=== PATIENT | male | born 1985 | race African-American/Black ===

== ENCOUNTER 2016-08-02 17:48 | Emergency (ER) | payer SELFPAY ==
[~2016-08-02] VITALS: Ht 182.9 cm; Wt 70.7 kg
[~2016-08-02 17:48] MED LIST: TRVHP PO
[2016-08-02 17:49] VITALS: Ht 182.9 cm; Wt 70.7 kg
[2016-08-02] MEDS ORDERED: ONDANSETRON INJ 2 MG/ML 2 ML VIAL IV STA (17:58)
[2016-08-02] MEDS ORDERED: SODIUM CHLORIDE 0.9% 1000ML 1,000 ML IV STA (17:58)
[2016-08-02] MEDS ORDERED: PANTOprazole INJ 40 MG in SYRINGE 0 ML IV ONE (18:00)
--- NOTE | 2016-08-02 18:07 | EMERGENCY ROOM VISIT NOTE ---
History Report prepared by Michelle: Paulina Saleh Under the Supervision of: Dr. Uziel Lauren D.O. First contact with patient: 17:52 Chief Complaint: NAUSEA Stated Complaint: NAUSEA MUSCLE PAIN WEAKNESS History of Present Illness The patient is a 31 year old male who presents to the Emergency Room with complaints of persistent nausea starting 1 week ago. He thought the symptoms might pass, but they have persisted. The nausea does not worsen with eating. It is constant throughout the day. He reports body aches, fatigue, and intermittent sharp abdominal pain in the RUQ. He feels lightheaded when standing up. He denies any double vision, trouble walking, chest pain, SOB, back pain, leg pain, dizziness, or headache. He denies any medical problems. He had an appendectomy 3 years ago. He admits to alcohol use. He denies any recent travel. Source of History: patient Onset: 1 week ago Position: other (global) Quality: other (nausea) Timing: other (persistent) Associated Symptoms: + abdominal pain, + fatigue, No SOB, No back pain, No chest pain, No headache Note: Pt reports body aches, lightheaded. Pt denies double vision, trouble walking, leg pain, dizziness. Review of Systems See HPI for pertinent positives & negatives. A total of 10 systems reviewed and were otherwise negative. Past Medical & Surgical Surgical Problems: (1) S/P appendectomy Family History No pertinent family history stated. Social History Smoking Status: Current Every Day Smoker Marital Status: single Occupation Status: [employer] student Current/Historical Medications Scheduled Ondasetron Odt (Zofran Odt), 4 MG SL Q6H Pantoprazole (Protonix), 40 MG PO DAILY Allergies Coded Allergies: No Known Allergies (Unverified , 08/02/16) Physical Exam Vital Signs Date Time Temp Pulse Resp B/P Pulse Ox O2 Delivery O2 Flow Rate FiO2 08/02/16 20:12 36.5 76 18 141/89 100 08/02/16 19:24 64 16 136/96 100 Room Air 08/02/16 19:24 68 08/02/16 17:49 36.5 80 20 145/87 99 Room Air Physical Exam GENERAL: Patient is awake, alert, and in no acute distress. Patient is resting comfortably and showing no signs of anxiety EYES: The conjunctivae are clear. The pupils are round and reactive. EARS, NOSE, MOUTH AND THROAT: The nose is without any evidence of any deformity. Mucous membranes are moist tongue is midline NECK: The neck is nontender and supple. RESPIRATORY: Normal respiratory effort is noted there is no evidence of wheezing rhonchi or rales CARDIOVASCULAR: Regular rate and rhythm noted there no murmurs rubs or gallops normal S1 normal S2 GASTROINTESTINAL: The abdomen is soft with RUQ and epigastric tenderness to palpation, no guarding or rigidity. MUSCULOSKELETAL/EXTREMITIES: There is no evidence of gross deformity full range of motion is noted in the hips and shoulders SKIN: There is no obvious evidence of any rash. There are no petechiae, pallor or cyanosis noted. NEUROLOGIC: Patient is awake alert and oriented x3 strength is symmetric patellar reflexes are 2+ bilaterally Medical Decision & Procedures ER Provider Diagnostic Interpretation: X-ray results as stated below per interpretation by me and the radiologist. Radiology results as stated below per my review and radiologist interpretation: PA CHEST RADIOGRAPH AND UPRIGHT AND SUPINE AP RADIOGRAPHS OF THE ABDOMEN CLINICAL HISTORY: Abdominal pain. COMPARISON STUDY: No previous studies for comparison. FINDINGS: Lung volumes are normal. There is no consolidation. Pulmonary vascularity is normal. No pneumothorax or pleural effusion is present. Cardiac size is normal. Mediastinal contours are normal. There is no free air. The bowel gas pattern is normal. A surgical staple line within the right lower quadrant is noted. No urinary calculi are identified. IMPRESSION: 1. No free air or evidence of bowel obstruction. 2. No acute cardiopulmonary findings. Electronically signed by: Oh Barros M.D. 08/02/2016 7:20 PM Dictated Date/Time: 08/02/2016 7:19 PM ABDOMINAL ULTRASOUND, RIGHT UPPER QUADRANT HISTORY: Abdominal pain. COMPARISON: None. FINDINGS: The liver is sonographically normal. There is no biliary ductal dilatation. No gallstones are identified. There is no gallbladder wall thickening. Pancreatic body is normal. The head and tail are partially. There is no right hydronephrosis. The right kidney appears slightly echogenic. IMPRESSION: 1. No gallstones or biliary ductal dilatation. 2. Apparent increased echogenicity of the right kidney. This is probably technical although medical renal disease could appear similar. Electronically signed by: Oh Barros M.D. 08/02/2016 7:07 PM Dictated Date/Time: 08/02/2016 7:05 PM Laboratory Results 08/02/16 18:20 Red Blood Count 5.08, Mean Corpuscular Volume 87.2, Mean Corpuscular Hemoglobin 30.9, Mean Corpuscular Hemoglobin Concent 35.4, Mean Platelet Volume 10.4, Neutrophils (%) (Auto) 36.1, Lymphocytes (%) (Auto) 49.3, Monocytes (%) (Auto) 10.5, Eosinophils (%) (Auto) 2.9, Basophils (%) (Auto) 1.0, Neutrophils # (Auto ) 1.51, Lymphocytes # (Auto) 2.06, Monocytes # (Auto) 0.44, Eosinophils # (Auto ) 0.12, Basophils # (Auto) 0.04 08/02/16 18:20 Test 08/02/16 18:20 08/02/16 19:20 White Blood Count 4.18 K/uL (4.8-10.8) Red Blood Count 5.08 M/uL (4.7-6.1) Hemoglobin 15.7 g/dL (14.0-18.0) Hematocrit 44.3 % (42-52) Mean Corpuscular Volume 87.2 fL (80-100) Mean Corpuscular Hemoglobin 30.9 pg (25-34) Mean Corpuscular Hemoglobin Concent 35.4 g/dl (32-36) Platelet Count 278 K/uL (130-400) Mean Platelet Volume 10.4 fL (7.4-10.4) Neutrophils (%) (Auto) 36.1 % Lymphocytes (%) (Auto) 49.3 % Monocytes (%) (Auto) 10.5 % Eosinophils (%) (Auto) 2.9 % Basophils (%) (Auto) 1.0 % Neutrophils # (Auto) 1.51 K/uL (1.4-6.5) Lymphocytes # (Auto) 2.06 K/uL (1.2-3.4) Monocytes # (Auto) 0.44 K/uL (0.11-0.59) Eosinophils # (Auto) 0.12 K/uL (0-0.5) Basophils # (Auto) 0.04 K/uL (0-0.2) RDW Standard Deviation 36.9 fL (36.4-46.3) RDW Coefficient of Variation 11.7 % (11.5-14.5) Immature Granulocyte % (Auto) 0.2 % Immature Granulocyte # (Auto) 0.01 K/uL (0.00-0.02) Anion Gap 7.0 mmol/L (3-11) Est Creatinine Clear Calc Drug Dose 99.1 ml/min Estimated GFR () 104.6 Estimated GFR (Non- 90.2 BUN/Creatinine Ratio 11.5 (10-20) Calcium Level 9.0 mg/dl (8.5-10.1) Total Bilirubin 0.6 mg/dl (0.2-1) Direct Bilirubin 0.2 mg/dl (0-0.2) Aspartate Amino Transf (AST/SGOT) 18 U/L (15-37) Alanine Aminotransferase (ALT/SGPT) 22 U/L (12-78) Alkaline Phosphatase 59 U/L (45-117) Troponin I < 0.015 ng/ml (0-0.045) Total Protein 7.6 gm/dl (6.4-8.2) Albumin 4.3 gm/dl (3.4-5.0) Lipase 96 U/L (73-393) Urine Color YEL Urine Appearance CLEAR (CLEAR) Urine pH 6.5 (4.5-7.5) Urine Specific [place] 1.010 (1.000-1.030) Urine Protein NEG (NEG) Urine Glucose (UA) NEG (NEG) Urine Ketones NEG (NEG) Urine Occult Blood NEG (NEG) Urine Nitrite NEG (NEG) Urine Bilirubin NEG (NEG) Urine Urobilinogen NEG (NEG) Urine Leukocyte Esterase NEG (NEG) Laboratory results per my review. Medications Administered Medications (Trade) Dose Ordered Sig/[place] Route Start Time Stop Time Status Last Admin Dose Admin Sodium Chloride (Nss 1000ml) 1,000 ml @ 999 mls/hr Q1H1M STAT IV 08/02/16 17:58 08/02/16 18:58 DC 08/02/16 17:58 999 MLS/HR Ondansetron HCl 4 mg 4 mg NOW STAT IV 08/02/16 17:58 08/02/16 17:59 DC 08/02/16 18:28 4 MG Pantoprazole Sodium/Syringe (Protonix Inj/ Syringe) 10 ml @ 5 mls/min NOW ONCE IV 08/02/16 18:00 08/02/16 18:04 DC 08/02/16 18:28 5 MLS/MIN ECG Indication: nausea Rate (beats per minute): 67 Rhythm: normal sinus Findings: no ectopy, other (no acute ST segment abnormality) Comparison ECG Date: no prior available ED Course 1754: The patient was evaluated in room B8. A complete history and physical examination were performed. 1757: Zofran Inj 4 mg IV, NSS 1000 ml @ 999 mls/hr IV. 1799: Pantoprazole Sodium 40 mg/Syringe 10 ml @ 5 mls/min IV. 1954: Upon reevaluation, the patient is resting comfortably. I discussed the results and treatment plan with him. He verbalized agreement of the treatment plan. He was discharged home. Medical Decision Prior records/ancillary studies reviewed. Triage Nursing notes reviewed. The patient's history was concerning for nausea and abdominal pain. Differential diagnosis: Etiologies such as gastroenteritis, food borne illness, infections, appendicitis , diverticulitis, inflammatory bowel disease, obstruction, GI bleed, biliary pathology, as well as others were entertained. The patient is a 31-year-old male who presented to the emergency department for an evaluation of nausea. The patient appeared to have upper abdominal tenderness on physical exam. He did not have a surgical abdomen on physical exam. The patient did not have any focal neurologic deficits or headache. I discussed the patient's laboratory and radiographic studies with him. He was treated with IV fluids IV antiemetics and IV proton pump inhibitors. On subsequent reevaluation he was feeling much better. I discussed the patient's laboratory and radiographic studies with him including the findings on his kidney on ultrasound. I recommended that he follow-up with his primary care physician for reevaluation and for possible referral to a solar photovoltaic installer. He was also encouraged to have repeat imaging of his kidneys when he was feeling better. He was also encouraged to return to emergency department immediately if symptoms change worsen or the need arises. Impression Primary Impression: RUQ abdominal pain Additional Impression: Nausea Scribe Attestation The scribe's documentation has been prepared under my direction and personally reviewed by me in its entirety. I confirm that the note above accurately reflects all work, treatment, procedures, and medical decision making performed by me. Departure Information Dispostion Home / Self-Care Prescriptions Pantoprazole (Protonix) 40 Mg Tab 40 MG PO DAILY, #30 TAB Prov: Uziel Lauren, DO 08/02/16 Ondasetron Odt (ZOFRAN ODT) 4 Mg Tab 4 MG SL Q6H for Nausea, #15 TAB Prov: Uziel Lauren, DO 08/02/16 Referrals No Doctor, Assigned [facility] Forms HOME CARE DOCUMENTATION FORM, IMPORTANT VISIT INFORMATION, School Instructions, Work Instructions Patient Instructions Abdominal Pain, [facility] Additional Instructions Drink plenty clear liquids. Avoid any fatty spicy or fried foods. Continue all medications as prescribed. Follow-up with your family this week for reevaluation but return to the emergency department immediately if symptoms change worsen or the need arises. I would also recommend a repeat ultrasound of her kidneys when symptoms improve. There was a slight echogenicity of your right kidney which is likely not related to today's symptoms. Problem Qualifiers
[2016-08-02 18:28] LABS: BASO ABS # 0.04 K/uL (0-0.2); COMPLETE YES; EOS % 2.9 %; HEMATOCRIT 44.3 % (42-52); IG% 0.2 %; LYMPH % 49.3 %; LYMPH ABS # 2.06 K/uL (1.2-3.4); MEAN CELL VOLUME 87.2 fL (80-100); MEAN CORPUSCULAR HEMOGLOBIN 30.9 pg (25-34); MEAN CORPUSCULAR HGB CONC 35.4 g/dl (32-36); MEAN PLATELET VOLUME 10.4 fL (7.4-10.4); MONO % 10.5 %; NEUT % 36.1 %; PLATELET COUNT 278 K/uL (130-400); RED BLOOD COUNT 5.08 M/uL (4.7-6.1); WHITE BLOOD COUNT 4.18 K/uL (4.8-10.8)
[2016-08-02 18:48] LABS: ALT/SGPT 22 U/L (12-78); BLOOD UREA NITROGEN 13 mg/dl (7-18); BUN/CREATININE RATIO 11.5 (10-20); CARBON DIOXIDE 30 mmol/L (21-32); CHLORIDE 102 mmol/L (98-107); GLUCOSE 93 mg/dl (70-99); POTASSIUM 3.7 mmol/L (3.5-5.1); SODIUM 139 mmol/L (136-145)
[2016-08-02 18:53] LABS: ALKALINE PHOSPHATASE 59 U/L (45-117); AST/SGOT 18 U/L (15-37)
--- NOTE | 2016-08-02 19:08 | DIAGNOSTIC IMAGING REPORT ---
ABDOMINAL ULTRASOUND, RIGHT UPPER QUADRANT HISTORY: Abdominal pain. COMPARISON: None. FINDINGS: The liver is sonographically normal. There is no biliary ductal dilatation. No gallstones are identified. There is no gallbladder wall thickening. Pancreatic body is normal. The head and tail are partially. There is no right hydronephrosis. The right kidney appears slightly echogenic. IMPRESSION: 1. No gallstones or biliary ductal dilatation. 2. Apparent increased echogenicity of the right kidney. This is probably technical although medical renal disease could appear similar. Electronically signed by: Oh Barros M.D. 08/02/2016 7:07 PM Dictated Date/Time: 08/02/2016 7:05 PM
--- NOTE | 2016-08-02 19:22 | DIAGNOSTIC IMAGING REPORT ---
PA CHEST RADIOGRAPH AND UPRIGHT AND SUPINE AP RADIOGRAPHS OF THE ABDOMEN CLINICAL HISTORY: Abdominal pain. COMPARISON STUDY: No previous studies for comparison. FINDINGS: Lung volumes are normal. There is no consolidation. Pulmonary vascularity is normal. No pneumothorax or pleural effusion is present. Cardiac size is normal. Mediastinal contours are normal. There is no free air. The bowel gas pattern is normal. A surgical staple line within the right lower quadrant is noted. No urinary calculi are identified. IMPRESSION: 1. No free air or evidence of bowel obstruction. 2. No acute cardiopulmonary findings. Electronically signed by: Oh Barros M.D. 08/02/2016 7:20 PM Dictated Date/Time: 08/02/2016 7:19 PM
[2016-08-02 19:30] LABS: URINE APPEARANCE CLEAR (CLEAR); URINE BILIRUBIN NEG (NEG); URINE NITRITE NEG (NEG); URINE PH 6.5 (4.5-7.5); UROBILINOGEN NEG (NEG)
[2016-08-02 19:34] LABS: MANUAL MICROSCOPIC REQUIRED? NO; REVIEW REQ? NO; URINE COLOR YEL
[2016-08-02] MEDS ORDERED: ONDA4TAB10 SL (19:42)
[2016-08-02] MEDS ORDERED: PANT40TA PO (19:42)
[2016-08-02 20:12] VITALS: BP 141/89; PULSE 76; TEMP 36.5; O2SAT 100
== END 2016-08-02 20:15 | disposition home or self-care (01) ==
LOC: MERGE 17:50 → C.EDB 17:50
DX: R10.11 Right upper quadrant pain (principal); R11.0 Nausea; F17.200 Nicotine dependence, unspecified, uncomplicated